=== PATIENT | female | born 1995 | race Caucasian/White ===

== ENCOUNTER 2018-05-15 01:32 | Inpatient (IN) | payer OTHER ==
[2018-05-15] MEDS ORDERED: MISOPROSTOL 200 MCG TAB PR ×2 (03:00→10:00)
[2018-05-15] MEDS ORDERED: CARBOPROST 250 MCG INJ IM ×2 (03:00→10:00)
[2018-05-15] MEDS ORDERED: METHYLERGONOVINE 0.2 MG INJ IM ×2 (03:00→10:00)
[2018-05-15] MEDS ORDERED: OXYTOCIN 30 UNITS/LR 500 ML IV ×4 (03:00→10:00)
[2018-05-15 03:03] LABS: ADD MAN DIFF? NO
[2018-05-15 03:04] LABS: BASOPHILS % 0.4 % (0.0-2.0); EOSINOPHILS # 0.1 10^3/ul (0.0-0.5); EOSINOPHILS % 1.1 % (0.0-7.0); HEMATOCRIT 35.5 % (37.0-47.0); HEMOGLOBIN 11.7 g/dl (12.0-16.0); LYMPHOCYTES # 2.7 10^3/ul (0.8-2.9); LYMPHOCYTES % 23.6 % (15.0-51.0); MEAN CORPUSCULAR HEMOGLOBIN 27.7 pg (29.0-33.0); MEAN CORPUSCULAR VOLUME 83.9 fl (82.0-101.0); MEAN PLATELET VOLUME 9.9 fl (7.4-10.4); MONOCYTE # 0.8 10^3/ul (0.3-0.9); MONOCYTES % 6.8 % (0.0-11.0); NEUTROPHIL # 7.7 10^3/ul (1.6-7.5); NEUTROPHILS % 67.7 % (39.0-77.0); PLATELET COUNT 257 10^3/UL (140-415); RED BLOOD COUNT 4.23 10^6/ul (4.20-5.40); RED CELL DISTRIBUTION WIDTH 13.4 % (11.5-14.5)
[2018-05-15 03:04] LABS: WHITE BLOOD COUNT 11.4 10^3/ul (4.8-10.8)
[2018-05-15] MEDS: CITRIC ACID/NA CITRATE 30 ML CUP PO (03:06)
[2018-05-15] MEDS: LACTATED RINGER'S 1,000 ML IV ×3 (03:06→20:15)
[2018-05-15] MEDS: METOCLOPRAMIDE 10 MG INJ IV (03:06)
[2018-05-15] MEDS: FAMOTIDINE 20 MG INJ IV (03:06)
[2018-05-15 03:22] LABS: INR 0.93; PROTIME 12.6 Sec (11.9-14.9)
[2018-05-15 03:23] LABS: PARTIAL THROMBOPLASTIN TIME 27.8 Sec (23.0-35.0)
[2018-05-15 03:24] LABS: ADD UMIC NO; UR ASCORBIC ACID NEGATIVE (NEGATIVE); UR BILIRUBIN (Dip) NEGATIVE (NEGATIVE); UR BLOOD (Dip) NEGATIVE (NEGATIVE); UR CLARITY CLEAR (CLEAR); UR COLOR YELLOW (YELLOW); UR GLUCOSE (Dip) NEGATIVE (NEGATIVE); UR KETONES (Dip) NEGATIVE (NEGATIVE); UR LEUKOCYTE ESTERASE (Dip) NEGATIVE Leu/ul (NEGATIVE); UR NITRITE (Dip) NEGATIVE (NEGATIVE); UR SPECIFIC GRAVITY (Dip) 1.011 (1.003-1.030); UR TOTAL PROTEIN (Dip) NEGATIVE (NEGATIVE); UR UROBILINOGEN (Dip) NEGATIVE (NEGATIVE)
[2018-05-15 03:40] LABS: AMPHETAMINE/METHAMPHETAMINE Negative (NEGATIVE); BARBITURATES Negative (NEGATIVE); BENZODIAZEPINES Negative (NEGATIVE); CANNABINOIDS Negative (NEGATIVE); COCAINE Negative (NEGATIVE); OPIATES Negative (NEGATIVE)
[2018-05-15 03:54] LABS: HEPATITIS B SURFACE ANTIGEN NEGATIVE (NEGATIVE)
[2018-05-15 04:04] LABS: HIV 1&2 ANTIBODY NEGATIVE (NEGATIVE)
[2018-05-15] MEDS ORDERED: morphine SULFATE/PF (10 MG/10 ML) INJ (04:26)
[2018-05-15] MEDS: CEFAZOLIN 2 GM/50 ML (PMX) 50 ML IV (04:49)
[2018-05-15] MEDS ORDERED: EPHEDrine SULFATE 50 MG/5 ML SYG (05:09)
[2018-05-15] MEDS ORDERED: ONDANSETRON 4 MG INJ (05:19)
[2018-05-15] MEDS ORDERED: PROCHLORPERAZINE 10 MG INJ IV ×2 (05:30→10:00)
[2018-05-15] MEDS ORDERED: FENTAnyl 50 MCG/ML VIAL IV ×3 (05:30)
[2018-05-15] MEDS ORDERED: HYDROmorphONE 1 MG/5 ML IV SYRINGE IV ×6 (05:30→10:00)
[2018-05-15] MEDS ORDERED: KETOROLAC 30 MG INJ IV ×2 (05:30→10:00)
[2018-05-15] MEDS ORDERED: ONDANSETRON 4 MG INJ IV ×5 (05:30→10:00)
[2018-05-15] MEDS ORDERED: DIPHENHYDRAMINE 50 MG INJ IV ×3 (05:30→10:00)
[2018-05-15] MEDS ORDERED: NALOXONE (0.4 MG/ML) INJ IV ×2 (05:30→10:00)
[2018-05-15] MEDS ORDERED: HYDROmorphONE 0.5 MG/0.5 ML SYG IV (05:30)
[2018-05-15] MEDS ORDERED: MEPERIDINE 25 MG INJ IV ×2 (05:30→10:00)
[2018-05-15] MEDS ORDERED: ZOLPIDEM 5 MG TAB PO ×3 (05:30→10:00)
[2018-05-15] MEDS ORDERED: BUPIVACAINE 0.75%/DEXT (SPINAL) 2 ML INJ (07:00)
[2018-05-15] MEDS: DIPHENHYDRAMINE 50 MG INJ IV (07:14)
[2018-05-15] MEDS ORDERED: OXYTOCIN 10 UNIT INJ (07:19)
[2018-05-15] MEDS: KETOROLAC 30 MG INJ IV ×2 (08:39→19:16)
[2018-05-15] MEDS: HYDROmorphONE 0.5 MG/0.5 ML SYG IV (10:36)
[2018-05-15] MEDS: LANOLIN 7 GM TUBE TOP (10:36)
[2018-05-15] MEDS: IBUPROFEN 600 MG TAB PO ×2 (12:00→18:00)
[2018-05-15 20:16] LABS: RAPID PLASMA REAGIN NONREACTIVE (NR)
[2018-05-15] MEDS: SENNA/DOCUSATE NA (8.6MG/50MG) TAB PO (21:00)
[2018-05-16] MEDS: KETOROLAC 30 MG INJ IV (03:57)
[2018-05-16] MEDS: IBUPROFEN 600 MG TAB PO ×5 (08:06→23:31)
[2018-05-16 09:14] LABS: ADD MAN DIFF? NO
[2018-05-16 09:20] LABS: BASOPHILS % 0.3 % (0.0-2.0); EOSINOPHILS # 0.3 10^3/ul (0.0-0.5); EOSINOPHILS % 2.7 % (0.0-7.0); HEMATOCRIT 32.2 % (37.0-47.0); HEMOGLOBIN 10.5 g/dl (12.0-16.0); LYMPHOCYTES # 1.7 10^3/ul (0.8-2.9); LYMPHOCYTES % 16.1 % (15.0-51.0); MEAN CORPUSCULAR HEMOGLOBIN 27.6 pg (29.0-33.0); MEAN CORPUSCULAR HGB CONC 32.6 g/dl (32.0-37.0); MEAN CORPUSCULAR VOLUME 84.5 fl (82.0-101.0); MEAN PLATELET VOLUME 10.2 fl (7.4-10.4); MONOCYTE # 0.8 10^3/ul (0.3-0.9); MONOCYTES % 7.6 % (0.0-11.0); NEUTROPHIL # 7.6 10^3/ul (1.6-7.5); NEUTROPHILS % 72.9 % (39.0-77.0); PLATELET COUNT 234 10^3/UL (140-415); RED BLOOD COUNT 3.81 10^6/ul (4.20-5.40)
[2018-05-16 09:20] LABS: WHITE BLOOD COUNT 10.5 10^3/ul (4.8-10.8)
[2018-05-16] MEDS: SENNA/DOCUSATE NA (8.6MG/50MG) TAB PO ×2 (09:32→19:49)
[2018-05-16] MEDS: OXYCODONE/ACETAMINOPHEN (5/325) TAB PO ×2 (09:32→19:48)
[2018-05-16 10:27] LABS: RUBELLA ANTIBODY - IGG <0.90 index
[2018-05-16 11:11] LABS: RUBELLA ANTIBODY - IGM <20.00 AU/mL
[2018-05-17] MEDS: IBUPROFEN 600 MG TAB PO ×4 (05:45→23:39)
[2018-05-17] MEDS: SENNA/DOCUSATE NA (8.6MG/50MG) TAB PO ×2 (09:20→21:00)
[2018-05-17] MEDS: DIPHTH/TET/ACEL PERTUSS (ADULT) 0.5 ML VIAL IM* (19:21)
[2018-05-18] MEDS: IBUPROFEN 600 MG TAB PO ×2 (05:46→11:39)
[2018-05-18] MEDS: OXYCODONE/ACETAMINOPHEN (5/325) TAB PO (07:49)
[2018-05-18] MEDS: SENNA/DOCUSATE NA (8.6MG/50MG) TAB PO (09:00)
== END 2018-05-18 14:10 | disposition home or self-care (01) | DRG 785 ==
LOC: OBT 01:32 → L-D 01:32 → OBT 02:40 → L-D 02:40 → PP1 08:06
PROC: 10D00Z1 Extraction of Products of Conception, Low, Open Approach (ICD-10-PCS; principal; 2018-05-15 03:30)
PROC: 0UB70ZZ Excision of Bilateral Fallopian Tubes, Open Approach (ICD-10-PCS; 2018-05-15 03:30)
PROC: 4A1HXCZ Monitoring of Products of Conception, Cardiac Rate, External Approach (ICD-10-PCS; 2018-05-15 03:30)
DX: O34.211 Maternal care for low transverse scar from previous cesarean delivery (principal); Z3A.38 38 weeks gestation of pregnancy; Z37.0 Single live birth; O69.81X0 Labor and delivery complicated by cord around neck, without compression, not applicable or unspecified; Z23 Encounter for immunization; Z30.2 Encounter for sterilization
CPT/HCPCS: 80307; 81003; 85025; 85610; 85730; 86592; 86703; 86762; 86850; 86900; 86901; 86920; 87340; 88302; 90686; 90715; 99464